=== PATIENT | female | born 1965 | race African-American/Black ===

== ENCOUNTER 2016-11-20 03:12 | Emergency (ER) | payer BC, OTHER ==
[2016-11-20 03:31] VITALS: BP 154/87; PULSE 79; TEMP 98; BMI 31.6
[2016-11-20] MEDS ORDERED: ASPIRIN PO ONE (03:39)
[2016-11-20] MEDS ORDERED: DIPYRIDAMOLE PO ONE (03:39)
--- NOTE | 2016-11-20 03:42 | EDPRACDOC ---
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 SHE WOKE TONIGHT WITH SUDDEN B/L PAIN FOLLOWING THE TRACK OF VARICOSE VEINS ALONG B/L INNER THIGHS. PAIN LASTED FOR 5 MINUTES AND RESOLVED SUDDENLY. SHE HAS HAD VEIN SCLEROSIS DONE IN RIGHT CALF WITHOUT GOOD RESULTS. NO BACK PAIN. NO ABDOMINAL PAIN. Pain In: Reports: Thigh ED Past Medical History - History Reviewed Yes Nurses notes reviewed and agree except as marked Travel Outside of [place] in the Last 3 Months?: No - Patient Medical History Neurological History: Reports: Seizures (resolved) Psychological History: Denies: Depression Surgical History: Reports: Other (FALLOPIAN TUBE DILATION). Denies: Hysterectomy - Family Medical History Reports: Hypertension (father), Diabetes (father), Cancer (lung cancer father, prostate grandfather), Stroke (mother and father). Denies: Cardiac Disorders - Social Medical History Smoking Status: Never smoker ETOH: None Substance Abuse: None Lives With: Family Lives In: Home EDM Review of Systems - Review of Systems ROS Negative Except as Marked: Yes All systems reviewed and were negative except as marked Constitutional: No Symptoms Reported. negative: Fever, Chills, Weakness, Fatigue, Loss of Appetite Eyes: No Symptoms Reported. negative: Redness, Blurred Vision, Double Vision, Discharge, Pain, Light Sensitive, Photophobia Ears: No Symptoms Reported. negative: Pain, Hearing Loss, Drainage, Ear Pulling Throat: No Symptoms Reported. negative: Pain, Swelling Nose: No Symptoms Reported. negative: Congestion, Bleeding, Discharge, Injection, Swelling, Deformity, Ecchymosis, Tender, Abrasion, Laceration Mouth: No Symptoms Reported. negative: Pain, Drooling Respiratory: No Symptoms Reported. negative: Cough, Brassy Cough, Barky Cough, Shortness of Breath, Wheezing, Hemoptysis Cardiovascular: No Symptoms Reported. negative: Chest Pain, Palpitations, Syncope, Edema, Orthopnea, PND, Skin Mottling, Cyanosis Gastrointestinal: No Symptoms Reported. negative: Pain, Constipation, Nausea, Vomiting, Diarrhea, Melena, Formula Intolerance Genitourinary: No Symptoms Reported. negative: Dysuria, Hematuria, Frequency, Discharge, Bleeding, Testicular Pain, Neurological: No Symptoms Reported. negative: Headache, Dizziness, Seizure, Numbness, Weakness, Speech Difficulty, Gait Difficulty Musculoskeletal: Leg. negative: Arm, Ankle, Back, Chestwall, Elbow, Forearm, Femur, Foot, Hand, Hip, Knee, Neck, Pelvis, Ribs, Shoulder, Wrist Integumentary: No Symptoms Reported. negative: Itching, Rash, Bruising, Wound Allergic/Immunologic: No Symptoms Reported. negative: Hives, Itching Hematologic: No Symptoms Reported. negative: Lymphadenopathy, Easy Bruising, Easy Bleeding Endocrine: No Symptoms Reported. negative: Weight Gain, Weight Loss Psychiatric: No Symptoms Reported. negative: Anxiety, Depression, Hallucinations, Insomnia, Suicidal - Physical Exam Constitutional: Alert (Awake), No apparent distress Oriented to: Time, Person, Place Last recorded Vital Signs: Last Vital Signs Temp 98 F 11/20/16 03:26 Pulse 79 11/20/16 03:26 Resp 18 11/20/16 03:26 BP 154/87 11/20/16 03:26 Pulse Ox 100 11/20/16 03:26 Oxygen Pulse Oxygen Saturation 100 O2 Device Room Air Oxygen Flow Rate Fraction of Inspired Oxygen ( FIO2) - HEENT Head: Normal ( normocephalic) Eye Exam: Normal (PERRL, EOMI, Sclera white) Oropharynx: Normal (Pharynx:Moist without exudate,Gums-no swelling) Tympanic Membrane: Normal ENT EAC: Normal TMJ: Normal Nose: No Symptoms Reported (septum midline) Neck: Normal (FROM, trachea at midline) - Respiratory/Cardiovascular Respiratory: Normal - CTA (BBS clear to auscultation without adventitious sounds ) Cardiovascular: Normal (RRR without murmur, gallop or rub) - GI Auscultation: Normal (NABS) Palpation: Normal (Soft,No rebound or guarding, non distended) Tenderness: Non tender Horowitz's Sign: Negative - Musculoskeletal Back: Normal (Non-Tender) Extremities: Normal (Normal tone, Pulses 2+ No cyanosis or edema, FROM) - Integumentary Skin: Normal, Warm, Dry Lymphatics: Normal (no adenopathy) - Neurologic Memory Impaired: Normal Motor Function: Normal (Normal tone, Pulses 2+ No cyanosis or edema, FROM) Cranial Nerve: Normal (CN II-X11 intact sensation, strength 5/5) Cerebellar: Normal Mood Description: Normal Perception: Normal ED Low Extremities Phys Exam - Thigh Right Medial Thigh Symptoms: Other (SUPERFICIAL VARICOSITIES PRESENT) - Deficits Deficits: None - Other Exam Other Exam Findings: GOOD DISTAL SENSATION AND GOOD PULSES AT DORSALIS PEDIS AND POSTERIOR TIBIAL Decision Time to Discharge: 03:43 - Departure Yes I personally saw and evaluated the patient. Disposition: Home Condition: Good Final Diagnosis: Venous insufficiency Instructions: Venous Insufficiency (GEN) Education/Counseling Given To: Patient Education/Counseling Given Regarding: Diagnosis, Treatment, Prognosis, Follow Up Referrals: Donato Morrow MD [Primary Care Provider] - One Week Chente Black MD [NonStaff] - One Week Prescriptions: Dipyridamole/Aspirin 200/25 [Aggrenox] 1 cap PO BID #60 cap
== END 2016-11-20 04:00 | disposition home or self-care (01) ==
LOC: ED 03:12
DX: I87.2 Venous insufficiency (chronic) (peripheral) (principal)
CPT/HCPCS: 99282; J3490